=== PATIENT | female | born 1935 | race Caucasian/White ===

== ENCOUNTER 2020-05-30 10:18 | Inpatient (IN) | payer OTHER ==
[~2020-05-30] VITALS: Ht 170.2 cm; Wt 83.6 kg
[~2020-05-30 10:18] MED LIST: ATIVAN0.5 MG PO; COZAAR 100MG T100 MG PO; DULERA 200 MCG8.8 GM PO; EFFEXOR XR150 MG PO; ISONIAZID300 MG PO; LAMICTAL200 MG PO; LIPITOR20 MG PO; NORVASC10 MG PO; PERCOCET 5-3251 EACH PO; PRILOSEC40 MG PO; SEROQUEL XR200 MG PO; SINGULAIR10 MG PO; TOPROL XL100 MG PO; VITAMIN B-650 M1 PO; XARELTO20 MG PO
[2020-05-30 11:03] LABS: BASOPHIL 0.3 % (0-2); EOSINOPHIL 0.4 % (0-7); HCT 43.1 % (37.0-47.0); LYMPHOCYTE 9.8 % (15-48); MCH 29.5 pg (25.0-31.0); MCHC 32.5 g/dL (32.0-36.0); MCV 90.7 fL (78.0-100.0); MONOCYTE 7.9 % (0-12); MPV 9.9 fL (6.0-9.5); NEUTROPHIL 81.2 % (41-80); NRBC 0; PLT 327 K/uL (150-400); RBC 4.75 M/uL (4.20-5.40); WBC 6.8 K/uL (4.0-10.5)
[2020-05-30 11:24] LABS: ALBUMIN 3.6 g/dL (3.4-5.0); BILIRUBIN - TOTAL 0.7 mg/dL (0.2-1.0); BUN/CREAT RATIO (CALC) 27.9 RATIO; CREATININE 0.68 mg/dL (0.51-0.95); POTASSIUM 3.6 mmol/L (3.5-5.1); TOTAL PROTEIN 7.6 g/dL (6.4-8.2)
[2020-05-30 14:03] LABS: BILIRUBIN NEGATIVE (NEGATIVE); BLOOD TRACE-INTACT Ery/uL (NEGATIVE); CLARITY CLEAR (CLEAR); COLOR YELLOW (YELLOW); GLUCOSE (U) NORMAL (NORMAL); LEUKOCYTES NEGATIVE Leu/uL (NEGATIVE); NITRITE NEGATIVE (NEGATIVE); PROTEIN TRACE (LOW) mg/dL (NEGATIVE)
[2020-05-30 14:12] LABS: BACTERIA TRACE
[2020-05-30] MEDS ORDERED: LASIX20 MG PO (16:23)
[2020-05-30] MEDS ORDERED: MELATONIN5 M2 PO (16:23)
[2020-05-30] MEDS ORDERED: EFFEXOR XR150 MG PO (16:24)
[2020-05-30] MEDS ORDERED: SEROQUEL400 MG PO (16:25)
[2020-05-30 16:39] LABS: INR 1.09 (0.9-1.2); PROTHROMBIN TIME 13.4 SECONDS (11.4-13.6)
[2020-05-30 16:40] LABS: PTT 31.6 SECONDS (22.2-34.7)
[2020-05-31 05:52] LABS: BASOPHIL 0.6 % (0-2); EOSINOPHIL 0.6 % (0-7); HCT 38.9 % (37.0-47.0); HGB 12.5 g/dl (12.5-16.0); LYMPHOCYTE 9.1 % (15-48); MCH 29.6 pg (25.0-31.0); MCHC 32.1 g/dL (32.0-36.0); MPV 9.9 fL (6.0-9.5); NEUTROPHIL 81.4 % (41-80); NRBC 0; PLT 313 K/uL (150-400); RBC 4.23 M/uL (4.20-5.40); RDW 14.4 % (11.5-14.0); WBC 7.2 K/uL (4.0-10.5)
[2020-05-31 07:15] LABS: ALBUMIN 3.1 g/dL (3.4-5.0); BILIRUBIN - TOTAL 0.6 mg/dL (0.2-1.0); CREATININE 0.62 mg/dL (0.51-0.95); GLOBULIN (CALCULATION) 3.5 g/dL; MAGNESIUM 1.9 mg/dL (1.8-2.4); POTASSIUM 3.5 mmol/L (3.5-5.1); TOTAL PROTEIN 6.6 g/dL (6.4-8.2)
--- NOTE | 2020-05-31 10:44 | NUR ---
05/31/20 Ms. Andrade lives alone. She has 3 children. Ms. Andrade has a caregiver 3 days per week. She has has a rw, 3in1, and s. chair. [facility] has followed in the past. Ms. Andrade requested to have [facility] at discharge; NAE Bates. Dr. Guadalupe approved the referral to [facility]. Referral was made via [facility]. Family is knowledgeable of the affliation.
[2020-06-01 05:51] LABS: BASOPHIL 0.4 % (0-2); EOSINOPHIL 2.2 % (0-7); HCT 35.2 % (37.0-47.0); LYMPHOCYTE 11.2 % (15-48); MCH 28.9 pg (25.0-31.0); MCHC 31.3 g/dL (32.0-36.0); MCV 92.6 fL (78.0-100.0); MONOCYTE 10.3 % (0-12); NEUTROPHIL 75.6 % (41-80); NRBC 0; PLT 272 K/uL (150-400); RDW 14.3 % (11.5-14.0); WBC 7.7 K/uL (4.0-10.5)
[2020-06-01 06:11] LABS: BUN/CREAT RATIO (CALC) 13.9 RATIO; CREATININE 0.72 mg/dL (0.51-0.95); POTASSIUM 3.3 mmol/L (3.5-5.1)
[2020-06-01 06:12] LABS: MAGNESIUM 1.5 mg/dL (1.8-2.4)
--- NOTE | 2020-06-01 10:48 | NUR ---
0835--PT IN SINUS ARRTHYMIA AND HR IN 80S. HR CONTINUED TO CLIMB AND DARYL TO 160s. MD NOTIFED. IV CARDIZEM GIVEN. AT BEDSIDE. PT BEING TRANSFERRED TO TCU WITH AFIB
[2020-06-02 04:02] LABS: ALBUMIN 2.7 g/dL (3.4-5.0); BILIRUBIN - TOTAL 0.6 mg/dL (0.2-1.0); BUN/CREAT RATIO (CALC) 10.7 RATIO; CREATININE 0.75 mg/dL (0.51-0.95); GLOBULIN (CALCULATION) 3.2 g/dL; POTASSIUM 3.2 mmol/L (3.5-5.1); TOTAL PROTEIN 5.9 g/dL (6.4-8.2)
[2020-06-02 04:10] LABS: MAGNESIUM 1.9 mg/dL (1.8-2.4)
[2020-06-02 05:24] LABS: BASOPHIL 0.5 % (0-2); EOSINOPHIL 3.4 & (0-7); HCT 39.1 % (37.0-47.0); HGB 12.4 g/dl (12.5-16.0); MCHC 31.7 g/dL (32.0-36.0); MCV 91.6 fL (78.0-100.0); MONOCYTE 12.8 % (0-12); MPV 10.3 fL (6.0-9.5); NEUTROPHIL 69.1 % (41-80); PLT 301 K/uL (150-400); RBC 4.27 M/uL (4.20-5.40); RDW 14.3 % (11.5-14.0); WBC 5.92 K/uL (4.0-10.5)
[2020-06-03 06:04] LABS: BASOPHIL 0.4 % (0-2); HCT 38.3 % (37.0-47.0); HGB 12.2 g/dl (12.5-16.0); LYMPHOCYTE 14.1 % (15-48); MCH 29.6 pg (25.0-31.0); MCHC 31.9 g/dL (32.0-36.0); MONOCYTE 11.8 % (0-12); MPV 10.3 fL (6.0-9.5); NEUTROPHIL 69.2 % (41-80); NRBC 0; PLT 257 K/uL (150-400); RBC 4.12 M/uL (4.20-5.40); RDW 14.4 % (11.5-14.0); WBC 5.5 K/uL (4.0-10.5)
[2020-06-03 06:45] LABS: PRO-BNP 4298 pg/mL (<450)
[2020-06-03 07:01] LABS: BUN/CREAT RATIO (CALC) 13.1 RATIO; CREATININE 0.84 mg/dL (0.51-0.95); MAGNESIUM 1.7 mg/dL (1.8-2.4)
[2020-06-04 13:36] LABS: BASOPHIL 0.6 % (0-2); EOSINOPHIL 3.9 % (0-7); HCT 34.8 % (37.0-47.0); LYMPHOCYTE 14.1 % (15-48); MCH 30.4 pg (25.0-31.0); MCHC 31.6 g/dL (32.0-36.0); MCV 96.1 fL (78.0-100.0); MONOCYTE 9.3 % (0-12); NEUTROPHIL 71.9 % (41-80); NRBC 0; PLT 155 K/uL (150-400); RBC 3.62 M/uL (4.20-5.40); RDW 14.6 % (11.5-14.0); WBC 4.8 K/uL (4.0-10.5)
[2020-06-04 13:55] LABS: BUN/CREAT RATIO (CALC) 12.5 RATIO; CREATININE 0.88 mg/dL (0.51-0.95); POTASSIUM 4.5 mmol/L (3.5-5.1)
--- NOTE | 2020-06-04 16:23 | NUR ---
06/04/20 [facility] was notified of discharge via [place]. Prashanth Dc notified Basilia Orta.
== END 2020-06-04 16:49 | disposition home or self-care (01) | DRG 392 ==
LOC: FER 10:18 → FMS 13:52 → FTCU 06-01 09:16 → FMS 06-03 12:56
PROVIDERS: Emergency Medicine; Nurse Practitioner Family; Surgery; ADMIT Internal Medicine
PROC: 0DB68ZX Excision of Stomach, Via Natural or Artificial Opening Endoscopic, Diagnostic (ICD-10-PCS; 2020-05-31)
PROC: 0DB38ZX Excision of Lower Esophagus, Via Natural or Artificial Opening Endoscopic, Diagnostic (ICD-10-PCS; principal; 2020-05-31 07:30)
PROC: 0D738ZZ Dilation of Lower Esophagus, Via Natural or Artificial Opening Endoscopic (ICD-10-PCS; 2020-05-31 07:30)
DX: K22.2 Esophageal obstruction (principal); I50.32 Chronic diastolic (congestive) heart failure; Z20.822 Contact with and (suspected) exposure to COVID-19; K21.9 Gastro-esophageal reflux disease without esophagitis; D50.9 Iron deficiency anemia, unspecified; I11.0 Hypertensive heart disease with heart failure; F31.9 Bipolar disorder, unspecified; J44.9 Chronic obstructive pulmonary disease, unspecified; E86.0 Dehydration; I48.0 Paroxysmal atrial fibrillation; K29.60 Other gastritis without bleeding; K44.9 Diaphragmatic hernia without obstruction or gangrene; K20.90 Esophagitis, unspecified without bleeding; G40.909 Epilepsy, unspecified, not intractable, without status epilepticus; Z86.73 Personal history of transient ischemic attack (TIA), and cerebral infarction without residual deficits; Z88.0 Allergy status to penicillin; Z79.899 Other long term (current) drug therapy; Z79.01 Long term (current) use of anticoagulants; Z90.710 Acquired absence of both cervix and uterus; Z98.890 Other specified postprocedural states
CPT/HCPCS: 36415; 71045; 80048; 80053; 80162; 81001; 82607; 82746; 83540; 83550; 83605; 83690; 83735; 83880; 84145; 84484; 85025; 85610; 85730; 87088; 88305; 93005; 94010; C9113; J0282; J0360; J0743; J1160; J1200; J2060; J2405; J2704; J3475; J3480; J3490; J7030; J7120; Q9967; U0002